=== PATIENT | male | born 1965 | race Caucasian/White ===

== ENCOUNTER 2016-05-17 09:05 | Outpatient (CLI) | payer MEDICARE, MEDICAID ==
[2016-05-17 10:02] LABS: #Basophils 0.1 thou/uL (0.0-0.2); #Eosinphils 0.5 thou/uL (0.0-0.7); #Lymphocytes 1.9 thou/uL (1.20-3.40); #Monocytes 0.5 thou/uL (0.11-0.59); #Neutrophils 2.8 thou/uL (1.40-6.50); %Basophils 2.4 % (0.0-1.0); %Eosinophils 7.9 % (0.0-10.0); %Lymphocytes 32.6 % (21.0-51.0); %Monocytes 8.4 % (0.0-10.0); %Neutrophils 48.7 % (42.0-75.0); Hemoglobin 16.7 g/dL (14.0-18.0); Mean Corpuscular HGB CONC 32.3 g/dL (32.0-36.0); Mean Corpuscular Hemoglobin 29.6 pg (27.0-31.0); Mean Corpuscular Volume 91.5 fl (80.0-94.0); Mean Platelet Volume 7.8 fL (7.4-10.4); Platelet Count 202 thou/uL (130-400); RBC Distribution Width 12.6 % (11.5-14.5); Red Blood Cell (RBC) Count 5.64 mill/uL (4.70-6.10); White Blood Cell (WBC) Count 5.8 thou/uL (4.8-10.8)
[2016-05-17 10:27] LABS: ALT (SGPT) 66 U/L (0-55); AST (SGOT) 52 U/L (5-34); Albumin 4.5 g/dL (3.5-5.0); Alkaline Phosphatase 65 U/L (40-150); Anion Gap 18 mmol/L (10-20); BUN (Urea Nitrogen) 21 mg/dL (8.9-20.6); Bilirubin, Total 0.6 mg/dL (0.2-1.2); Calc. Creatinine Clearance 0 mL/min (70-130); Calcium 9.8 mg/dL (7.8-10.44); Carbon Dioxide 23 mmol/L (22-29); Cardiac Risk 6.8 (Less than 4.5); Chloride 102 mmol/L (98-107); Cholesterol 259 mg/dL (< 200 Desired); Estimated GFR-MDRD 69; Globulin 3.5 g/dL (2.4-3.5); Glucose 104 mg/dL (70-105); HDL Cholesterol 38 mg/dL (>60 Neg Risk); LDL Cholesterol, Calculated 164 mg/dL; Potassium 4.3 mmol/L (3.5-5.1); Sodium 139 mmol/L (136-145); Triglycerides 286 mg/dL (Less than 150)
== END 2016-05-17 09:06 | disposition home or self-care (01) ==
LOC: MADLABBHPM 09:05
PROVIDERS: ATTEND Family Medicine
DX: G40.909 Epilepsy, unspecified, not intractable, without status epilepticus (principal)
CPT/HCPCS: 36415; 80053; 80061; 80164; 84443; 85025

== ENCOUNTER 2016-05-18 15:26 | Outpatient (CLI) | payer MEDICARE, OTHER ==
[2016-05-19 18:02] LABS: HBCM Index 0.08 S/CO (0-0.79); HBSAg Index 0.59 S/CO (0-0.99); Hep A IgM AB Non-Reactive (NonReactive); Hep A IgM S/CO 0.11 S/CO (0-0.79); Hep B Surf Ag Non-Reactive S/CO (NonReactive); Hep C IgG Ab Non-Reactive (NonReactive); Hep C Index 0.22 S/CO (0-0.79); Hepatitis B Core IGM Abs Non-Reactive (NonReactive)
== END 2016-05-18 15:27 | disposition home or self-care (01) ==
LOC: MADLABBHPM 15:26
PROVIDERS: ATTEND Family Medicine
DX: R79.89 Other specified abnormal findings of blood chemistry (principal)
CPT/HCPCS: 36415; 80074

== ENCOUNTER 2016-05-20 08:59 | Outpatient (CLI) | payer MEDICARE, MEDICAID ==
--- NOTE | 2016-05-20 12:04 | ULT ---
RIGHT UPPER QUADRANT ULTRASOUND: History: 50-year-old male with abnormal liver function test. FINDINGS: Imaging is less than optimal because of body habitus and gas. The gallbladder is incompletely seen. There is some prominent shadowing from what appears to be adjacent bowel. There is one area of de nse shadowing coming from the region of the gallbladder fundus, very suspicious for the possibility of large gallstone which could be up to approximately 2 cm in diameter. The common bile duct is 0.3 cm. Portions of the gallbladder wall are minimally thickened. There was no evidence for a Leon' s sign present. Liver echogenicity is very heterogeneously dense with very poor through transmissio n, evidence for severe fatty change. Pancreas region is obscured mostly. Right kidney is unremarka ble. IMPRESSION: Large focal dense area of echogenic shadowing from the region of the gallbladder fundus suspicious f or at least one large gallstone. Borderline gallbladder wall thickening of at least a portion of th e gallbladder, but no evidence for a positive Leon's sign. No evidence for common duct or intrahe patic ductal dilatation. Marked fatty changes of the liver. Exam is less than optimal because of s ome prominent gas and fecal material probably in the hepatic flexure of the colon, partially overlyi ng the region of the gallbladder and liver and pancreas. Comparison prior CT scan 05-01-12 demonstrated abnormal attenuation changes within the gallbladder ce rtainly concerning at that time for a gallstone. Additionally there is extensive fatty change in th e liver. POS: [facility]
== END 2016-05-20 09:00 | disposition home or self-care (01) ==
LOC: MADULT 08:59
PROVIDERS: ATTEND Family Medicine
DX: R79.89 Other specified abnormal findings of blood chemistry (principal)
CPT/HCPCS: 76705

== ENCOUNTER 2016-08-13 09:21 | Outpatient (CLI) | payer MEDICAID, MEDICARE ==
[2016-08-13 10:36] LABS: ALT (SGPT) 62 U/L (8-55); AST (SGOT) 44 U/L (5-34); Albumin 4.3 g/dL (3.5-5.0); Alkaline Phosphatase 69 U/L (40-150); Anion Gap 16 mmol/L (10-20); BUN (Urea Nitrogen) 27 mg/dL (8.9-20.6); Bilirubin, Direct 0.2 mg/dL (0.1-0.3); Bilirubin, Total 0.6 mg/dL (0.2-1.2); Calc. Creatinine Clearance 0 mL/min (70-130); Calcium 9.2 mg/dL (7.8-10.44); Carbon Dioxide 23 mmol/L (22-29); Cardiac Risk 6.5 (Less than 4.5); Chloride 103 mmol/L (98-107); Cholesterol 252 mg/dl (< 200 Desired); Estimated GFR-MDRD 65; Glucose 97 mg/dL (70-105); HDL Cholesterol 39 mg/dL (>60 Neg Risk); LDL Cholesterol, Calculated 165 mg/dL; Potassium 4.3 mmol/L (3.5-5.1); Protein, Total 7.7 g/dL (6.0-8.3); Sodium 138 mmol/L (136-145); Triglycerides 241 mg/dL (Less than 150)
== END 2016-08-13 09:22 | disposition home or self-care (01) ==
LOC: MADLABBHPM 09:21
PROVIDERS: ATTEND Family Medicine
DX: E78.5 Hyperlipidemia, unspecified (principal); G40.909 Epilepsy, unspecified, not intractable, without status epilepticus; R79.89 Other specified abnormal findings of blood chemistry
CPT/HCPCS: 36415; 80048; 80061; 80076

== ENCOUNTER 2016-11-10 09:29 | Outpatient (CLI) | payer MEDICAID, MEDICARE ==
[2016-11-10 11:35] LABS: ALT (SGPT) 46 U/L (8-55); AST (SGOT) 35 U/L (5-34); Albumin 4.1 g/dL (3.5-5.0); Alkaline Phosphatase 63 U/L (40-150); Anion Gap 16 mmol/L (10-20); BUN (Urea Nitrogen) 22 mg/dL (8.9-20.6); Bilirubin, Direct 0.1 mg/dL (0.1-0.3); Bilirubin, Total 0.5 mg/dL (0.2-1.2); Calc. Creatinine Clearance 0 mL/min (70-130); Calcium 9.6 mg/dL (7.8-10.44); Carbon Dioxide 24 mmol/L (22-29); Cardiac Risk 6.2 (Less than 4.5); Chloride 103 mmol/L (98-107); Cholesterol 222 mg/dl (< 200 Desired); Estimated GFR-MDRD 54; Glucose 87 mg/dL (70-105); HDL Cholesterol 36 mg/dL (>60 Neg Risk); LDL Cholesterol, Calculated 118 mg/dL; Potassium 4.9 mmol/L (3.5-5.1); Sodium 138 mmol/L (136-145); Triglycerides 340 mg/dL (Less than 150)
== END 2016-11-10 09:30 | disposition home or self-care (01) ==
LOC: MADLABBHPM 09:29
PROVIDERS: ATTEND Family Medicine
DX: G40.909 Epilepsy, unspecified, not intractable, without status epilepticus (principal); E78.5 Hyperlipidemia, unspecified; R79.89 Other specified abnormal findings of blood chemistry
CPT/HCPCS: 36415; 80048; 80061; 80076; 80164

== ENCOUNTER 2017-03-05 09:04 | Emergency (ER) | payer MEDICARE, OTHER ==
--- NOTE | 2017-03-05 11:23 | RAD ---
4 VIEWS LEFT KNEE: Date: 03/05/17 HISTORY: Left knee pain. FINDINGS: AP, lateral, and both oblique views of left knee obtained. There is joint space narrowing in the medial and lateral compartments of the left knee with osteophyt es seen. Findings compatible with left knee osteoarthritis. Anterior compartment osteophytes also pre sent. IMPRESSION: Moderate to severe left knee osteoarthritic changes. No acute abnormality seen. POS: [facility]
== END 2017-03-05 10:05 | disposition home or self-care (01) ==
LOC: MADERS 09:04
DX: S86.912A Strain of unspecified muscle(s) and tendon(s) at lower leg level, left leg, initial encounter (principal); S83.92XA Sprain of unspecified site of left knee, initial encounter; F17.220 Nicotine dependence, chewing tobacco, uncomplicated; Z79.899 Other long term (current) drug therapy; W01.0XXA Fall on same level from slipping, tripping and stumbling without subsequent striking against object, initial encounter

== ENCOUNTER 2018-06-20 14:47 | Emergency (ER) | payer MEDICARE, MEDICAID ==
--- NOTE | 2018-06-20 15:30 | RAD ---
XR Knee Lt 4 View STANDARD History: [Ground-level fall] Comparison: Knee [id number] Findings: Large joint effusion. Severe tricompartmental degenerative changes with chondrocalcinosis. No acute displaced fracture is appreciated. Surgical clips along the knee. Moderate soft tissue swelling. Large tricompartmental osteophytes. Large patellar enthesophytes. Impression: Advanced degenerative changes with reactive joint effusion and soft tissue swelling. No a cute displaced fracture.
== END 2018-06-20 15:45 | disposition home or self-care (01) ==
LOC: MADERS 14:47
DX: S80.01XA Contusion of right knee, initial encounter (principal); M25.461 Effusion, right knee; F17.220 Nicotine dependence, chewing tobacco, uncomplicated; Z79.899 Other long term (current) drug therapy; W18.30XA Fall on same level, unspecified, initial encounter

== ENCOUNTER 2018-08-23 13:36 | Emergency (ER) | payer MEDICARE, MEDICAID ==
--- NOTE | 2018-08-23 14:01 | RAD ---
XR Ankle Lt 3 View STANDARD HISTORY: Injury left ankle pain FINDINGS: There is a mildly displaced fracture involving the medial malleolus. Soft tissue swelling is present.
== END 2018-08-23 14:50 | disposition home or self-care (01) ==
LOC: MADERS 13:36
DX: S82.52XA Displaced fracture of medial malleolus of left tibia, initial encounter for closed fracture (principal); F17.220 Nicotine dependence, chewing tobacco, uncomplicated; Z79.899 Other long term (current) drug therapy; W18.30XA Fall on same level, unspecified, initial encounter

== ENCOUNTER 2020-02-06 11:04 | Emergency (ER) | payer MEDICARE, MEDICAID ==
--- NOTE | 2020-02-06 11:33 | RAD ---
EXAM: XR Ankle Rt 3 View STANDARD PROVIDED CLINICAL HISTORY: Pain COMPARISON: 11/19/2012 FINDINGS: There is no evidence for fracture or other acute osseous abnormality. Alignment appears anatomic. Sheyla nt spaces appear preserved. Postoperative changes and remote ununited medial malleolar fracture redemonstrated. IMPRESSION: No evidence for an acute osseous abnormality. If there is persistent clinical concern, conservative m anagement and follow-up imaging advised.
--- NOTE | 2020-02-06 11:34 | RAD ---
EXAM: XR Knee Rt 4 View STANDARD PROVIDED CLINICAL HISTORY: Pain FINDINGS: There is a nondisplaced fracture involving the proximal fibular metaphyseal region. Alignment appears anatomic. Joint spaces appear preserved. IMPRESSION: Nondisplaced proximal fibular fracture.
[2020-02-06] MEDS ORDERED: Lidocaine 1% w/Epinephrine 1:100K 20 ML VIAL ONE (12:07)
[2020-02-06] MEDS ORDERED: Boostrix 0.5 ML (Tdap) VIAL ONE (12:29)
[2020-02-06] MEDS ORDERED: Triple Antibiotic Oint 1 GM Packet ONE (12:43)
== END 2020-02-06 13:05 | disposition home or self-care (01) ==
LOC: MADERS 11:04
DX: S82.831A Other fracture of upper and lower end of right fibula, initial encounter for closed fracture (principal); S91.311A Laceration without foreign body, right foot, initial encounter; Z23 Encounter for immunization; W01.198A Fall on same level from slipping, tripping and stumbling with subsequent striking against other object, initial encounter
CPT/HCPCS: 12002; 27781; 90471; 90715; G0390

== ENCOUNTER 2021-01-30 05:36 | Emergency (ER) | payer MEDICARE, MEDICAID | END 2021-01-30 09:10 | disposition home or self-care (01) | LOC: MADERS 05:36 | DX: S01.81XA Laceration without foreign body of other part of head, initial encounter (principal); W01.0XXA Fall on same level from slipping, tripping and stumbling without subsequent striking against object, initial encounter; I10 Essential (primary) hypertension; F17.220 Nicotine dependence, chewing tobacco, uncomplicated | CPT/HCPCS: 12014 ==

== ENCOUNTER 2021-02-27 12:09 | Emergency (ER) | payer MEDICARE, MEDICAID ==
[2021-02-27] MEDS ORDERED: Acetaminophen 500 MG TAB ONE (12:22)
== END 2021-02-27 15:50 | disposition home or self-care (01) ==
LOC: MADERS 12:09
DX: S83.91XA Sprain of unspecified site of right knee, initial encounter (principal); W19.XXXA Unspecified fall, initial encounter; I10 Essential (primary) hypertension; F17.220 Nicotine dependence, chewing tobacco, uncomplicated

== ENCOUNTER 2021-09-03 12:29 | Outpatient (CLI) | payer MEDICARE, MEDICAID ==
[2021-09-03 13:49] LABS: #Basophils 0.1 thou/uL (0.0-0.2); #Eosinphils 0.3 thou/uL (0.0-0.7); #Lymphocytes 2.1 thou/uL (1.20-3.40); #Monocytes 0.9 thou/uL (0.11-0.59); #Neutrophils 3.6 thou/uL (1.40-6.50); %Basophils 1.7 % (0.0-1.0); %Eosinophils 3.9 % (0.0-10.0); %Monocytes 13.2 % (0.0-10.0); %Neutrophils 51.3 % (42.0-75.0); Hemoglobin 15.4 g/dL (14.0-18.0); Mean Corpuscular HGB CONC 31.8 g/dL (32.0-36.0); Mean Corpuscular Hemoglobin 27.6 pg (27.0-31.0); Mean Corpuscular Volume 86.8 fL (78.0-98.0); Platelet Count 240 thou/uL (130-400); RBC Distribution Width 12.8 % (11.5-14.5); Red Blood Cell (RBC) Count 5.55 mill/uL (4.70-6.10); White Blood Cell (WBC) Count 6.9 thou/uL (4.8-10.8)
[2021-09-03 13:58] LABS: ALT (SGPT) 24 U/L (8-55); AST (SGOT) 19 U/L (5-34); Alkaline Phosphatase 60 U/L (40-110); Anion Gap 14 mmol/L (10-20); BUN (Urea Nitrogen) 17 mg/dL (8.4-25.7); Bilirubin, Total 0.5 mg/dL (0.2-1.2); Calc. Creatinine Clearance 0 mL/min (70-130); Calcium 9.3 mg/dL (7.8-10.44); Carbon Dioxide 26 mmol/L (22-29); Chloride 105 mmol/L (98-107); Globulin 3.2 g/dL (2.4-3.5); Glucose 96 mg/dL (70-105); Protein, Total 7.2 g/dL (6.0-8.3); Sodium 140 mmol/L (136-145)
== END 2021-09-03 12:30 | disposition home or self-care (01) ==
LOC: MADLAB 12:29
DX: G40.509 Epileptic seizures related to external causes, not intractable, without status epilepticus (principal)
CPT/HCPCS: 80053; 85025

== ENCOUNTER 2022-08-06 15:51 | Emergency (ER) | payer MEDICARE, OTHER, MEDICAID ==
[2022-08-06] MEDS ORDERED: Bacitracin 1 PK ONE (16:19)
[2022-08-06] MEDS ORDERED: Boostrix 0.5 ML (Tdap) VIAL (>/=7 yrs of age) ONE (16:19)
[2022-08-06 17:25] LABS: #Basophils 0.1 thou/uL (0.0-0.2); #Eosinphils 0.2 thou/uL (0.0-0.7); #Lymphocytes 1.6 thou/uL (1.20-3.40); #Monocytes 0.6 thou/uL (0.11-0.59); #Neutrophils 4.6 thou/uL (1.40-6.50); %Basophils 1.7 % (0.0-1.0); %Eosinophils 2.7 % (0.0-10.0); %Lymphocytes 23.1 % (21.0-51.0); %Neutrophils 64.6 % (42.0-75.0); Hemoglobin 15.3 g/dL (14.0-18.0); Mean Corpuscular HGB CONC 32.5 g/dL (32.0-36.0); Mean Corpuscular Hemoglobin 30.1 pg (27.0-31.0); Mean Corpuscular Volume 92.5 fl (78.0-98.0); Mean Platelet Volume 8.7 fL (7.4-10.4); Platelet Count 210 10x3/uL (130-400); RBC Distribution Width 12.5 % (11.5-14.5); Red Blood Cell (RBC) Count 5.09 mill/uL (4.70-6.10); White Blood Cell (WBC) Count 7.1 10x3/uL (4.8-10.8)
[2022-08-06 17:28] LABS: ALT (SGPT) 34 U/L (8-55); AST (SGOT) 23 U/L (5-34); Albumin 3.9 g/dL (3.5-5.0); Alkaline Phosphatase 47 U/L (40-110); Anion Gap 14 mmol/L (10-20); BUN (Urea Nitrogen) 16 mg/dL (8.4-25.7); Bilirubin, Total 0.4 mg/dL (0.2-1.2); Calc. Creatinine Clearance 0 mL/min (70-130); Calcium 9.3 mg/dL (7.8-10.44); Carbon Dioxide 23 mmol/L (22-29); Chloride 108 mmol/L (98-107); Estimated GFR 93; Globulin 3.1 g/dL (2.4-3.5); Glucose 124 mg/dL (70-105); Potassium 3.9 mmol/L (3.5-5.1); Sodium 141 mmol/L (136-145)
[2022-08-06 17:29] LABS: Acetaminophen Less than 10 mcg/mL (10.0-30.0); Alcohol Less than 10.0 mg/dL (Less than 10); Salicylate Less than 8.0 mg/dL (15.0-30.0)
[2022-08-06 17:38] LABS: Amphetamine Not Detected (NotDetected); Barbiturates Screen Not Detected (NotDetected); Benzodiazepine Screen Not Detected (NotDetected); Cocaine Metabolite Screen Not Detected (NotDetected); Methadone Not Detected (NotDetected); Methamphetamine Not Detected (NotDetected); Opiate Screen Not Detected (NotDetected); Oxycodone Screen Not Detected (NotDetected); Phencyclidine (PCP) Not Detected (NotDetected); THC/Cannabinoid Screen Not Detected (NotDetected); Tricyclic Screen Not Detected (NotDetected)
== END 2022-08-06 20:59 | disposition home or self-care (01) ==
LOC: MADERS 15:51
DX: S60.511A Abrasion of right hand, initial encounter (principal); R45.87 Impulsiveness; G40.909 Epilepsy, unspecified, not intractable, without status epilepticus; E78.5 Hyperlipidemia, unspecified; I10 Essential (primary) hypertension; F17.220 Nicotine dependence, chewing tobacco, uncomplicated; W22.09XA Striking against other stationary object, initial encounter; Z79.899 Other long term (current) drug therapy; Z23 Encounter for immunization
CPT/HCPCS: 36415; 80053; 80306; 80307; 85025; 90471; 90715